=== PATIENT | male | born 1990 | race Caucasian/White ===

== ENCOUNTER 2017-01-28 12:23 | Emergency (ER) | payer SELFPAY ==
[~2017-01-28 12:23] MED LIST: CIPROFLOXACIN250 M2 PO; COLACE100 MG PO; LAC PO; NORCO1 TA2 PO; ZOF4 PO
[2017-01-28 12:44] VITALS: BP 162/60
== END 2017-01-28 14:48 | disposition left against medical advice (07) ==
LOC: ED 12:23
DX: Z53.21 Procedure and treatment not carried out due to patient leaving prior to being seen by health care provider (principal)